=== PATIENT | female | born 1965 ===

== ENCOUNTER 2020-09-19 06:43 | Day surgery (SDC) | payer BC ==
[~2020-09-19] VITALS: Ht 154.9 cm; Wt 71.5 kg
[~2020-09-19 06:43] MED LIST: COLACE 100100 MG/CAP PO; NORCO 325 MG-51 TAB PO; PYRIDIUM200 M1 PO
[2020-09-19] MEDS ORDERED: SYNTHROID 0.0.025 MG PO (07:31)
[2020-09-19] MEDS ORDERED: PROTONIX 40MG T40 MG PO (07:38)
[2020-09-19] MEDS ORDERED: NEOMYCIN S500 MG/TAB PO (07:39)
[2020-09-19] MEDS ORDERED: TUMS ULTRA ST1000 MG PO (07:40)
[2020-09-19] MEDS ORDERED: GAS RELIEF125 MG PO (07:41)
[2020-09-19 08:00] VITALS: BP 121/58; PULSE 72; TEMP 97.6
[2020-09-19] MEDS ORDERED: BENTYL 10MG10 MG/CAP PO (08:54)
[2020-09-19 09:00] VITALS: BP 106/53; PULSE 74; TEMP 97.6
[2020-09-19 09:15] VITALS: BP 122/69; PULSE 67
[2020-09-19 09:30] VITALS: BP 123/68; PULSE 60
[2020-09-19 09:45] VITALS: BP 116/70; PULSE 64
--- NOTE | 2020-09-19 10:15 | NUR ---
0900 Pt returns from endo procedure via cart to [facility] 4. Pt ambulates from cart to recliner with RN assist. Monitors on and alarms set. Call light within reach. Report received from Patricia. Pt drowsy but answering all questions appropriately. Pt states pain in her LUQ similar to prior to procedure. No other pain or nausea described. Pt requests water only.
--- NOTE | 2020-09-19 10:15 | NUR ---
0900 Pt returns from endo procedure via cart to [facility] [place] 4. Pt ambulates from cart to recliner with RN assist. Monitors on and alarms set. Call light within reach. Report received from Patricia. Pt drowsy but answering all questions appropriately. Pt states pain in her LUQ similar to prior to procedure. No other pain or nausea described. Pt requests water only. 0915 Pt drinking water and still complains of bloating (as prior to procedure) when she eats or drinks anything. Pt more alert and visiting with , now in the room. 0940 Dr. Wang in to visit with pt and . 1007 Discharge instructions given to pt and . Many questions answered to their satisfaction. Handed to them are a thank you card and all discharge information. 1015 Transfer pt via wheelchair and this RN from hospital to private vehicle driven by .
== END 2020-09-19 10:15 | disposition home or self-care (01) ==
LOC: SDCO 06:43
DX: K29.30 Chronic superficial gastritis without bleeding (principal); K25.7 Chronic gastric ulcer without hemorrhage or perforation; F17.210 Nicotine dependence, cigarettes, uncomplicated; Z79.899 Other long term (current) drug therapy; E03.9 Hypothyroidism, unspecified; Z20.822 Contact with and (suspected) exposure to COVID-19; K21.9 Gastro-esophageal reflux disease without esophagitis
CPT/HCPCS: J2704; J7030

== ENCOUNTER → 2021-09-21 | Outpatient (CLI) | payer BC ==
[~2021-09-21] MED LIST changes: +BENTYL 10MG10 MG/CAP PO; +GAS RELIEF125 MG PO; +NEOMYCIN S500 MG/TAB PO; +PROTONIX 40MG T40 MG PO; +SYNTHROID 0.0.025 MG PO; +TUMS ULTRA ST1000 MG PO
== END ==
LOC: MC.RAD 12:59
DX: Z12.31 Encounter for screening mammogram for malignant neoplasm of breast (principal); N64.89 Other specified disorders of breast

== ENCOUNTER → 2021-09-26 | Outpatient (CLI) | payer BC | LOC: MC.RAD 12:43 | DX: N60.02 Solitary cyst of left breast (principal) ==

== ENCOUNTER → 2021-10-02 | Outpatient (CLI) | payer BC | LOC: MC.RAD 09:28 | DX: N63.20 Unspecified lump in the left breast, unspecified quadrant (principal) ==